=== PATIENT | female | born 1990 | race Two or more races ===

== ENCOUNTER 2020-06-23 19:28 | Emergency (ER) | payer OTHER ==
[~2020-06-23] VITALS: Ht 132.1 cm; Wt 69.9 kg
--- NOTE | 2020-06-23 20:02 | NUR ---
PT AAOX4. BIBSELF C/O HEADACHE WITH DIZZINESS SINCE THIS MORNING. PT PLACED IN BED 4 ON MONITOR AND PULSE OX. PT UNABLE TO PROVIDE URINE SAMPLE AT THE TIME. AWAITING OTHER ORDERS. VSS. NO ACUTE DISTRESS NOTED.
[2020-06-23] MEDS ORDERED: PROCHLORPERAZINE EDISYLATE 10 MG/2 ML VIAL ONE (20:17)
[2020-06-23] MEDS ORDERED: DEXAMETHASONE SOD PHOSPHATE 4 MG/ML VIAL ONE (20:17)
[2020-06-23] MEDS ORDERED: diphenhydrAMINE HCL 50 MG/ML VIAL ONE (20:17)
[2020-06-23] MEDS ORDERED: KETOROLAC TROMETHAMINE INJ 30 MG/ML VIAL ONE (20:17)
[2020-06-23 20:29] LABS: BASOPHILS % (AUTO) 0.7 % (0.0-2.0); EOSINOPHILS % (AUTO) 1.2 % (0.0-6.0); HEMATOCRIT 43 % (33-45); HEMOGLOBIN 14.3 g/dL (11.5-14.8); LYMPHOCYTES # (AUTO) 0.9 /CMM (0.8-4.8); LYMPHOCYTES % (AUTO) 13.2 % (20.0-44.0); MEAN CORPUSCULAR HGB CONC 34 g/dl (31.0-36.0); MEAN CORPUSCULAR VOLUME 86 fL (82-100); MONOCYTES # (AUTO) 0.4 /CMM (0.1-1.30); MONOCYTES % (AUTO) 6.2 % (2.0-12.0); NEUTROPHILS # (AUTO) 5.6 /CMM (1.8-8.9); NEUTROPHILS % (AUTO) 78.7 % (43.0-81.0); PLATELET COUNT (AUTO) 206 /CMM (150-450); RED BLOOD CELL COUNT(AUTO) 4.98 MIL/uL (4.0-5.2); WHITE BLOOD COUNT (AUTO) 7.1 K/uL (4.3-11.0)
[2020-06-23] MEDS ORDERED: KETOROLAC TROMETHAMINE INJ 30 MG/ML VIAL IV ONE (20:30)
[2020-06-23] MEDS ORDERED: DEXAMETHASONE SOD PHOSPHATE 4 MG/ML VIAL IV ONE (20:30)
[2020-06-23] MEDS ORDERED: IV NS 0.9% 1,000 ML BAG IV ONE (20:30)
[2020-06-23] MEDS ORDERED: PROCHLORPERAZINE EDISYLATE 10 MG/2 ML VIAL IVP ONE (20:30)
[2020-06-23] MEDS ORDERED: diphenhydrAMINE HCL 50 MG/ML VIAL IV ONE (20:30)
[2020-06-23 20:36] LABS: CALCIUM, SERUM 8.2 mg/dL (8.5-10.1); CREATININE 0.9 mg/dL (0.6-1.3); POTASSIUM 3.9 mmol/L (3.5-5.1)
[2020-06-23 21:23] VITALS: BP 125/76
--- NOTE | 2020-06-23 21:24 | NUR ---
SPOKE TO PT, STATED SHE FEELS BETTER,.
--- NOTE | 2020-06-23 21:35 | NUR ---
CALLED LAB FOR COVID SWAB
--- NOTE | 2020-06-23 21:35 | NUR ---
IV removed. Catheter intact and site benign. Pressure and 4x4 applied to site. No bleeding noted.
--- NOTE | 2020-06-23 21:46 | NUR ---
COVID SWAB SENT TO LAB
--- NOTE | 2020-06-23 21:48 | NUR ---
Patient discharged to home in stable condition. Written and verbal after care instructions given. Patient verbalizes understanding of instruction and RX. Pt ambulated with steady gait. denies pain. Picked up by brother.
== END 2020-06-23 21:48 | disposition home or self-care (01) ==
LOC: ER 19:37
DX: R51.9 Headache, unspecified (principal); R42 Dizziness and giddiness; Z20.828 Contact with and (suspected) exposure to other viral communicable diseases
CPT/HCPCS: 36415; 80048; 85025; 96361; 96374; 96375; 99284; C9803; J0780; J1100; J1200; J1885; J7030; U0003